=== PATIENT | female | born 1995 | race Caucasian/White ===

== ENCOUNTER 2017-01-01 01:12 | Inpatient (IN) | payer OTHER ==
[~2017-01-01] VITALS: Ht 152.4 cm; Wt 74.6 kg
[2017-01-01 02:34] VITALS: BP 133/71; PULSE 80; RESP 16; TEMP 96.8; O2SAT 98
[2017-01-01] MEDS ORDERED: LORazepam 0.5 MG TAB age > 65 yrs PO PRN (03:15)
[2017-01-01] MEDS ORDERED: LORazepam 2 MG/ML VIAL - age > 65 yrs IM PRN (03:15)
[2017-01-01] MEDS ORDERED: ALUMINUM/MAGNESIUM/SIMETH 30 ML CUP PO PRN (03:15)
[2017-01-01] MEDS ORDERED: MAGNESIUM HYDROXIDE SUSP 30 ML CUP PO PRN (03:15)
[2017-01-01] MEDS ORDERED: ACETAMINOPHEN 325 MG TAB PO PRN (03:15)
[2017-01-01 06:03] VITALS: BP 118/67; PULSE 69; RESP 16; TEMP 97.7
[2017-01-01 08:32] LABS: ANION GAP 6 MEQ/L (5-15); BICARBONATE 31.5 MEQ/L (21.0-32.0); BLOOD UREA NITROGEN 9 MG/DL (7-18); CHLORIDE 105 MEQ/L (98-107); POTASSIUM 4.5 MEQ/L (3.5-5.1); SODIUM (NA) 142 MEQ/L (136-145)
[2017-01-01 09:00] LABS: GLOMERULAR FILTRATION RATE 82 ML/MIN (>89)
[2017-01-01] MEDS ORDERED: NICOTINE 21 MG/24 HR PATCH T-DERMAL SCH (09:00)
[2017-01-01 09:05] LABS: HDL CHOLESTEROL 64.4 MG/DL (40.0-60.0); LDL CHOLESTEROL 83 MG/DL (0-99)
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
[2017-01-01] MEDS ORDERED: CITALOPRAM HYDROBROMIDE 20 MG TAB PO SCH (11:00)
[2017-01-01 11:50] LABS: HEMOGLOBIN A1a 0.8 %; HEMOGLOBIN A1b 0.8 %; HEMOGLOBIN Ao 86.7 %; HEMOGLOBIN F 1.1 %; HEMOGLOBIN LA1C 1.8 %; HEMOGLOBIN P3 3.3 %
[2017-01-01] MEDS ORDERED: CELE20TA PO (14:50)
--- NOTE | 2017-01-01 14:50 | HHI.DS ---
Psychiatry Discharge Summary Inpatient Psychiatric care?: Yes Advance Directive: No Reason Not Provided: DENIES THE NEED Mental Health AdvanceDirective: No Health Care Proxy: No Admission Admission Date Jan 01, 2017 at 02:25 Admission Diagnosis: (1) Major depression, recurrent, chronic ICD Code: F33.9 GAF Score: 45 Brief History This is a 21-year-old female who was transferred from another hospital after she was medically stabilized there. Under the Alvarez act. Patient claimed that she went there because she passed out at work. She claimed that she has been feeling depressed and frustrated because her mother blames her for everything and she has threatened to overdose on her medication hydrocodone. Patient claimed that she has been having trouble sleeping she has anhedonia she cannot eat she cries she denied any active auditory or visual hallucinations. She denied any drugs or alcohol use and/or abuse. She has been feeling this way for the past 2 or 3 years. In the past she has attempted and was Alvarez acted at the age of 18. She has been working for the [employer] but feels stressed out she has not been seeing any psychiatrist as an outpatient on a regular basis. She is willing to cooperate with the treatment sign voluntary and take the medication and willing to follow-up upon discharge once stable Tobacco Use In Past 30 Days: No Tobacco Past 30 Days Alcohol Use: Never Hospital Course Patient was started on supportive treatment patient remained isolated to her room. But denied any suicidal ideation intentions or plan. No behavior or management problem reported. Patient's insurance does not cover her stay here. Patient was willing to follow-up as an outpatient and take the medication and see her counselor as an outpatient at that point arrangements were made for her to be discharged Results Blood Pressure 118 / 67 Vital Signs Date Time Temp Pulse Resp B/P Pulse Ox O2 Delivery O2 Flow Rate FiO2 01/01/17 06:03 97.7 69 16 118/67 01/01/17 02:34 98 Laboratory Tests Test 01/01/17 06:40 Estimat Glomerular Filtration 82 ML/MIN (>89) Rate HDL Cholesterol 64.4 MG/DL (40.0-60.0) Laboratory Results Test 01/01/17 06:40 Hemoglobin A1c 4.9 % (4.3-6.0) Triglycerides Level 147 MG/DL (42-150) Cholesterol Level 177 MG/DL (120-200) LDL Cholesterol 83 MG/DL (0-99) HDL Cholesterol 64.4 MG/DL (40.0-60.0) Summary of Major Lab Results Nothing significant Summary of Procedures None Imaging None Pending results at discharge: No Medications # of Antipsychotic meds at D/C: 0 Approp Antipsych med options 1 - Minimum of three failed multiple trials of monotherapy. 2 - Documented plan to taper to monotherapy due to previous use of multiple meds OR cross-taper in progress at D/C. 3 - Documentation of augmentation of Clozapine. 4 - Justification other than those listed in allowable values 1-3, document here : Discharge Discharge Date: Jan 01, 2017 Discharge Diagnosis: (1) Major depression, recurrent, chronic Diagnosis: Principal ICD Code: F33.9 Mental Status Exam at Disch Patient was alert oriented 3 cooperative casually dressed. Her speech was clear spontaneous without any evidence of loose associations. Her mood was described as feeling fine and wanting to go home and willing to follow-up as an outpatient. Patient denied any suicidal ideation intentions or plan. Denied any auditory or visual hallucinations. No behavior or management problem reported Pt Condition on Discharge: Stable Discharge Disposition: Discharge Home Discharge Instructions Diet Instructions: As Tolerated, No Restrictions Activities you can perform: Regular-No Restrictions Scheduled Appointment: Discharge Time <= 30 minutes Discharge/Advance Care Plan Health Problems: (1) Major depression, recurrent, chronic Goals to promote your health * To prevent worsening of your condition and complications * To maintain your health at the optimal level Directions to meet your goals Take your medications as prescribed Follow your dietary instruction Follow activity as directed Keep your appointments as scheduled Take your immunizations and boosters as scheduled If your symptoms worsen call your PCP, if no PCP go to Urgent Care Center or Emergency Room For 14/06 questions related to your inpatient stay or results of tests pending at discharge, please contact Dr. Celestino Ybarra at Smoking is Dangerous to Your Health. Avoid second hand smoking Celestino Ybarra MD Jan 01, 2017 14:49
[2017-01-01] MEDS ORDERED: REMOVE OLD NICOTINE PATCH T-DERMAL SCH (21:00)
== END 2017-01-01 16:40 | disposition home or self-care (01) | DRG 885 ==
LOC: H260 02:25
PROVIDERS: ADMIT Psychiatry & Neurology Psychiatry; ATTEND Psychiatry & Neurology Psychiatry
DX: F33.9 Major depressive disorder, recurrent, unspecified (principal); R45.851 Suicidal ideations; Z91.410 Personal history of adult physical and sexual abuse; Z91.411 Personal history of adult psychological abuse
CPT/HCPCS: 80048; 80061; 83036